=== PATIENT | male | born 1980 | race Caucasian/White ===

== ENCOUNTER 2022-09-08 04:10 | Emergency (ER) | payer OTHER, SELFPAY ==
[2022-09-08 04:20] VITALS: BP 121/75; PULSE 76; RESP 16; TEMP 37; O2SAT 99; BMI 35.9
[2022-09-08] MEDS: SODIUM CHLORIDE 0.9% 1,000 ML 1000 ML IV (04:44)
[2022-09-08 04:57] LABS: Add Manual Diff / Slide Review NO; Basophils Absolute Auto 0 /uL (0-100); Basophils Percent Auto 0.2 % (0-2); Eosinophils Absolute Auto 0 /uL (0-450); Eosinophils Percent Auto 0.1 % (2-4); Hematocrit 39.4 % (41-53); Hemoglobin 13.4 g/dL (13.5-17.5); Lymphocytes Absolute Auto 1200 /uL (1100-4500); Lymphocytes Percent Auto 12.5 % (25-40); Mean Corpuscular Hemoglobin 29.7 PG (26-34); Mean Corpuscular Volume 87.4 fL (80-100); Monocytes Absolute Auto 700 /uL (0-900); Monocytes Percent Auto 6.9 % (3-14); Neutrophils Absolute Auto 7700 /uL (1500-7000); Neutrophils Percent Auto 80.3 % (50-75); Platelet Count 213 X10^3/uL (150-400); Red Cell Distribution Width 13.7 % (11.6-14.8); White Blood Cell Count 9.6 X10^3/uL (4.5-11.0)
--- NOTE | 2022-09-08 05:03 | ED_ITS ---
HPI - Male Genitourinary General Chief complaint: Urogenital-Male Stated complaint: Kidney stone Time Seen by Provider: 09/08/22 04:24 Source: EMS Mode of arrival: EMS History of Present Illness HPI Narrative: Patient is a 42-year-old male history of multiple kidney stones with lithotripsy presents today with increased abdominal pain. He actually had a lithotripsy and stent placed in his right ureter yesterday. He since then has had increasing abdominal pain he has urinated small amounts frequently. He previously needed Mcintosh after a stent placement because his bladder so spasms. He is not had fever or chills. He is slightly nauseous. He is in quite a bit of pin pain he got 100 of fentanyl prior to arrival. Related Data Home Medications Medication Instructions Recorded Confirmed oxycodone 5 mg Q8HR PRN Pain (Scale Score 09/08/22 09/08/22 4-6) phenazopyridine 100 mg TID PRN Pain (Scale Score 09/08/22 09/08/22 1-3) tamsulosin 0.4 mg DAILY 09/08/22 09/08/22 Previous Rx's Medication Instructions Recorded cephalexin 500 mg capsule 500 mg PO BID 7 days #14 caps 09/08/22 ondansetron 4 mg disintegrating 4 mg PO Q8H PRN nausea and 09/08/22 tablet vomiting #10 tabs Allergies Allergy/AdvReac Type Severity Reaction Status Date / Time No Known Drug Allergies Allergy Verified 09/08/22 04:26 Review of Systems Review of Systems Narrative: GENERAL: Denies chills, fatigue, malaise, fever, sweats, travel HEENT: Denies sinus pain, ear pain, sore throat, difficulty swallowing, neck pain RESPIRATORY: Denies dyspnea, cough, wheezing, hemoptysis, sputum. CARDIOVASCULAR: Denies chest pain, palpitations, orthopnea, edema GASTROINTESTINAL: Denies nausea, vomiting, abdominal pain, diarrhea, constipation, melena. : See HPI MUSCULOSKELETAL: Denies weakness, joint pain, or bony pain SKIN: No rash, no erythema, no pruritus NEUROLOGIC: Denies weakness, dizziness, headache, numbness, change in speech, confusion PSYCHIATRIC: No concerning psychosocial issues. 12 point review of systems is negative except for those stated above and HPI Exam Initial Vital Signs Initial Vital Signs: Vital Signs Temperature 98.6 F 09/08/22 04:20 Pulse Rate 76 09/08/22 04:20 Respiratory Rate 16 09/08/22 04:20 Blood Pressure 121/75 09/08/22 04:20 Pulse Oximetry 99 09/08/22 04:20 Oxygen Delivery Method 09/08/22 04:20 GENERAL: Alert pleasant 42-year-old male appears very uncomfortable and in no acute distress. HEENT: Head atraumatic,EOMI, pupils reactive, face symmetric, moist mucous membranes CARDIOVASCULAR: Regular rate and rhythm without murmurs, rubs or gallops. RESPIRATORY: Breath sounds equal bilaterally, no wheezes rales or rhonchi. ABDOMEN: Soft, suprapubic pain no guarding rebound : No CVA tenderness EXTREMITIES: Normal range of motion, no clubbing or edema. Neurovascularly intact NEUROLOGICAL: Alert and oriented x4. SKIN: Warm, dry, no laceration, no petechiae, no rashes or lesions. Course Orders Ordered: ED Orders 09/08/22 04:45 CBC Auto Diff [Complete Blood Count AUTO DIFF] Stat CMP [Comprehensive Metabolic Panel] Stat Lactate (Lactic Acid) Stat Lipase Stat 09/08/22 05:03 XR abdomen 1V Stat Discontinued Medications Hydromorphone HCl (Hydromorphone 1 Mg Inj) 1 mg IV NOW ONE Stop: 09/08/22 05:04 Last Admin: 09/08/22 05:25 Dose: 1 mg Documented By: TRINA Sodium Chloride (Normal Saline 0.9%) 1,000 mls @ 1,000 mls/hr IV BOLUS ONE Stop: 09/08/22 05:24 Last Infusion: 09/08/22 05:25 Dose: 0 mls/hr Documented By: Admin: 09/08/22 04:44 Dose: 1,000 mls/hr Documented By: TRINA Lidocaine HCl (Lidocaine 2% (Glydo) 6 Ml Gel) 6 ml TOP NOW ONE Stop: 09/08/22 05:08 Last Admin: 09/08/22 05:25 Dose: 6 ml Documented By: TRINA Vital Signs Vital signs: Vital Signs - 8 hr 09/08/22 04:20 09/08/22 06:36 09/08/22 06:03 Temperature 98.6 F Pulse Rate 76 75 Respiratory Rate 16 16 Blood Pressure 121/75 123/79 Pulse Oximetry 99 97 Oxygen Delivery Method Room Air 09/08/22 06:30 Temperature Pulse Rate 80 Respiratory Rate Blood Pressure Pulse Oximetry 98 Oxygen Delivery Method MDM - Male Genitourinary Lab Data Result diagrams: 09/08/22 04:45 09/08/22 04:45 Labs: Lab Results 09/08/22 09/08/22 09/08/22 Range/Units 04:45 04:45 04:45 WBC 9.6 (4.5-11.0) X10^3/uL RBC 4.50 (4.5-5.9) X10^6/uL Hgb 13.4 L (13.5-17.5) g/dL Hct 39.4 L (41-53) % MCV 87.4 (80-100) fL MCH 29.7 (26-34) PG MCHC 34.0 (30-36) % RDW 13.7 (11.6-14.8) % Plt Count 213 (150-400) X10^3/uL Neut % (Auto) 80.3 H (50-75) % Lymph % (Auto) 12.5 L (25-40) % [place] % (Auto) 6.9 (3-14) % Eos % (Auto) 0.1 L (2-4) % Baso % (Auto) 0.2 (0-2) % Neut # (Auto) 7700 H (1482-1334) /uL Lymph # (Auto) 1200 (6024-2302) /uL [place] # (Auto) 700 (0-900) /uL Eos # (Auto) 0 (0-450) /uL Baso # (Auto) 0 (0-100) /uL Sodium 136 L (137-145) mmol/L Potassium 3.7 (3.4-5.1) mmol/L Chloride 100 (98-107) mmol/L Carbon Dioxide 28 (22-32) mmol/L BUN 11 (9-20) mg/dL Creatinine 0.95 (0.66-1.25) mg/dL Estimated GFR > 60 (>60) mL/min BUN/Creatinine Ratio 11.6 (6-22) Glucose 116 H (70-100) mg/dL Lactate 0.9 (0.7-2.1) mmol/L Calcium 8.5 (8.4-10.2) mg/dL Total Bilirubin 0.5 (0.2-1.3) mg/dL AST 20 (17-59) IU/L ALT 20 (<50) IU/L Alkaline Phosphatase 59 (38-126) U/L Total Protein 6.9 (6.3-8.2) g/dL Albumin 3.9 (3.5-5.0) g/dL Globulin 3.0 (1.7-4.1) g/dL Albumin/Globulin Ratio 1.3 (1.0-2.8) Lipase 68 (23-300) U/L Urine Dip Bedside Urine Glucose Negative Bedside Urine Bilirubin - Negative Bedside Urine Ketone - Negative Urine Specific [place] 1.005 Bedside Urine Occult Blood +++ Bedside Urine pH 6.0 Bedside Urine Protein +/- 15 Bedside Urine Urobilinogen - Negative Bedside Urine Nitrite + Positive Bedside Urine Leukocytes + 70 Esterase Imaging Data Abdominal x-ray: Radiologist's Impression: Preliminary report right ureteral stent in adequate position. No calculi are seen along the course of the stent. Nonobstructive bowel gas pattern without hemoperitoneum MDM Narrative Medical decision making narrative: Mcintosh catheter placed patient received immediate relief. He had over 800 out instantaneously NS at over a 1000 output since. Does have some leukocytosis. He has now Mcintosh catheter and a ureteral stent. I think reasonable to put him on antibiotics. Overall blood work is reassuring no evidence of acute kidney i njury. Or sepsis. Discharge Plan Departure Patient Disposition: Home Clinical Impression: Urinary tract infection, Acute urinary retention Instructions: DI for Urinary Retention in Men Activity Restrictions/Additional Instructions: *You have been diagnosed with urinary retention, UTI *What to do: At this time please call your urologist today to schedule follow- up appointment. Make sure he is aware of new Mcintosh catheter. *Continue to take medications as directed -->[place] [place] Keflex 500 mg twice a day for 7 days Zofran 4 mg every 8 hours if needed for nausea or vomiting *Follow up with your primary care provider in 2-3 days or call [phone] *Return to ER if you should have increasing pain Mcintosh catheter not working persistent vomiting or fever or any new, worsening or concerning symptoms Prescriptions: New cephalexin 500 mg capsule 500 mg PO BID 7 Days Qty: 14 0RF ondansetron 4 mg tablet,disintegrating 4 mg PO Q8H PRN (Reason: nausea and vomiting) Qty: 10 0RF No Action oxycodone 5 mg 5 mg Q8HR PRN (Reason: Pain (Scale Score 4-6)) phenazopyridine 100 mg 100 mg TID PRN (Reason: Pain (Scale Score 1-3)) tamsulosin 0.4 mg 0.4 mg DAILY Visit Report Forms: Patient Portal/API
--- NOTE | 2022-09-08 05:03 | DI.RAD.S_ITS ---
PROCEDURE: XR ABDOMEN 1V INDICATIONS: stent right side TECHNIQUE: One view of the abdomen acquired. COMPARISON: None. FINDINGS: Surgical changes and devices: There is a right-sided ureteral stent with the proximal loop in the area of the right renal pelvis and distal loop in the area of the urinary bladder. Bowel: Bowel gas pattern is normal. There is a large amount of stool in colon. Soft tissues: No suspicious abdominal calcifications. Visualized solid organ contours appear normal in size. Bones: No suspicious bony lesions. IMPRESSION: 1. A right ureteral stent. No definitive urinary stones are visualized on x-ray. If clinically indicated, CT may be helpful. No significant discrepancy with the night custodian radiology preliminary report. Dictated by: Swetha Martinez M.D. on 09/08/2022 at 8:15 Approved by: Swetha Martinez M.D. on 09/08/2022 at 8:17
--- NOTE | 2022-09-08 05:10 | PC.NURSE ---
Addendum entered by Luciana Tidwell R.N. 09/08/22 06:18: last time pt was able to empty his bladder was before the surgery yesterday morning, pt states he was able to urinate a small amount prior to ems arriving Original Note: see triage note for hx, pt's states this is his third lithotripsy and he has had post op complications with each one
[2022-09-08 05:16] LABS: Alanine Aminotransferase 20 IU/L (<50); Albumin 3.9 g/dL (3.5-5.0); Albumin Globulin Ratio 1.3 (1.0-2.8); Alkaline Phosphatase 59 U/L (38-126); Aspartate Aminotransferase 20 IU/L (17-59); BUN Creatinine Ratio 11.6 (6-22); Bilirubin Total 0.5 mg/dL (0.2-1.3); Blood Urea Nitrogen 11 mg/dL (9-20); Calcium 8.5 mg/dL (8.4-10.2); Carbon Dioxide 28 mmol/L (22-32); Chloride 100 mmol/L (98-107); Estimated Glomerular Filt Rate > 60 mL/min (>60); Glucose 116 mg/dL (70-100); HEMOLYSIS < 15 (0-50); Lipase 68 U/L (23-300); Potassium 3.7 mmol/L (3.4-5.1); Sodium 136 mmol/L (137-145); Total Protein 6.9 g/dL (6.3-8.2)
[2022-09-08 05:17] LABS: Lactate (Lactic Acid) 0.9 mmol/L (0.7-2.1)
[2022-09-08] MEDS: HYDROMORPHONE 1 MG INJ IV (05:25)
[2022-09-08] MEDS: LIDOCAINE 2% (GLYDO) 6 ML GEL TOP (05:25)
--- NOTE | 2022-09-08 05:27 | PC.NURSE ---
trevino inserted without difficulty, with pt's immediate relief 800 ml returned
[2022-09-08 06:03] VITALS: PULSE 75; RESP 16; O2SAT 97
[2022-09-08 06:30] VITALS: PULSE 80; O2SAT 98
[2022-09-08 06:36] VITALS: BP 123/79
== END 2022-09-08 06:53 | disposition home or self-care (01) ==
PROVIDERS: Emergency Provider Emergency Medicine
DX: N39.0 Urinary tract infection, site not specified (principal); R33.9 Retention of urine, unspecified
CPT/HCPCS: 36415; 51702; 74018; 80053; 81003; 83605; 83690; 85025; 96374; 99284; J1170

== ENCOUNTER 2022-09-14 13:13 | Emergency (ER) | payer OTHER, SELFPAY ==
[2022-09-14 13:19] VITALS: BP 120/78; PULSE 80; RESP 15; TEMP 36.6; O2SAT 97; BMI 30.1
[2022-09-14 13:33] LABS: Appearance Urine UA CLEAR; Bilirubin Urine UA NEGATIVE (NEGATIVE); Color Urine UA YELLOW; Glucose Urine UA NEGATIVE (Negative); Ketones Urine UA NEGATIVE (NEGATIVE); Leukocyte Esterase Urine UA NEGATIVE (NEGATIVE); Nitrite Urine UA NEGATIVE (Negative); Occult Blood Urine UA 1+ (Negative); Protein Urine UA NEGATIVE (Negative); Specific Gravity Urine UA <=1.005 (1.000-1.035); Urobilinogen Urine UA 0.2 E.U./dL (0.2); pH Urine UA 6.5 (4.5-8.0)
[2022-09-14 13:43] LABS: Bacteria Urine None Seen; Culture Indicated Urine Cult Not Indicated; RBC Urine None Seen (0-5/HPF); Squamous Epithelial Cell Urine None Seen (0-5/HPF); WBC Urine None Seen (0-5/HPF)
--- NOTE | 2022-09-14 14:46 | ED.MALEGU ---
HPI - Male Genitourinary <Rafael Galvez PA-C - Last Filed: 09/14/22 17:25> General Chief complaint: Urogenital-Male Stated complaint: lots of kidney pain Time Seen by Provider: 09/14/22 14:26 Source: patient Mode of arrival: Ambulatory History of Present Illness HPI Narrative: This is a 42-year-old male presents emergency department due to acute onset right flank pain onset yesterday. States that he is a history of lithotripsy and stent placement on the right side may a urologist who was part of the [facility] group. This was done a week ago. States that he was seen in the ED recently due to urinary retention where a Mcintosh was placed. The Mcintosh and stent were both removed by the urologist office 2 days ago. He has developed acute right flank pain since then. Reports being mildly nauseated. Denies any hematuria, dysuria, testicular pain, or any other concerning signs or symptoms. Related Data Home Medications Medication Instructions Recorded Confirmed oxycodone 5 mg Q8HR PRN Pain (Scale Score 09/08/22 09/08/22 4-6) phenazopyridine 100 mg TID PRN Pain (Scale Score 09/08/22 09/08/22 1-3) tamsulosin 0.4 mg DAILY 09/08/22 09/08/22 Previous Rx's Medication Instructions Recorded ondansetron 4 mg disintegrating 4 mg PO Q8H PRN nausea and 09/08/22 tablet vomiting #10 tabs Allergies Allergy/AdvReac Type Severity Reaction Status Date / Time No Known Drug Allergies Allergy Verified 09/14/22 13:19 Review of Systems <Rafael Galvez PA-C - Last Filed: 09/14/22 17:25> Review of Systems Narrative: GENERAL: Denies chills, fatigue, malaise, fever, sweats. HEENT: Denies sinus pain, ear pain, sore throat, difficulty swallowing, dizziness. RESPIRATORY: Denies dyspnea, cough, wheezing, hemoptysis, sputum. CARDIOVASCULAR: Denies chest pain, palpitations, orthopnea, edema, GASTROINTESTINAL: Denies nausea, vomiting, abdominal pain, diarrhea, constipation, melena. : Denies dysuria, frequency, incontinence, hematuria, urinary retention. MUSCULOSKELETAL: denies weakness, joint pain, or bony pain SKIN: Denies rash, skin lesions, or other NEUROLOGIC: Denies weakness, headache, numbness, change in speech, confusion, seizures, incoordination. PSYCHIATRIC: No concerning psychosocial issues. Back: Right flank pain 12 point review of systems is negative except for those stated above Patient History <Rafael Galvez PA-C - Last Filed: 09/14/22 17:25> Social History Smoking Status: Unknown if ever smoked Smoking Status: Unknown if ever smoked alcohol intake frequency: holidays/special occasions only Substance Use Type: does not use Exam <Rafael Galvez PA-C - Last Filed: 09/14/22 17:25> Narrative Exam Narrative: GENERAL: Well-developed patient, in mild distress. HEAD: Atraumatic. Normocephalic. EYES: Pupils equal round and reactive. Extraocular motions intact. No scleral icterus. No injection or drainage. ENT: Nose without bleeding, purulent drainage. Throat without erythema, tonsillar hypertrophy or exudate. Airway patent. NECK: Trachea midline. Non tender CARDIOVASCULAR: Regular rate and rhythm without murmurs, gallops, or rubs. RESPIRATORY: Clear to auscultation. Breath sounds equal bilaterally. No wheezes, rales, or rhonchi. GASTROINTESTINAL: Abdomen soft, non-tender, nondistended. EXTREMITIES: No edema or joint tenderness. BACK: Nontender without deformity or crepitance. Right CVA tenderness to palpation NEURO: AOx3. SKIN: No rash or erythema of visible areas Initial Vital Signs Initial Vital Signs: Vital Signs Temperature 97.8 F 09/14/22 13:19 Pulse Rate 80 09/14/22 13:19 Respiratory Rate 15 09/14/22 13:19 Blood Pressure 120/78 09/14/22 13:19 Pulse Oximetry 97 09/14/22 13:19 Oxygen Delivery Method 09/14/22 13:19 <Naila Olivas DO - Last Filed: 09/19/22 07:20> Initial Vital Signs Initial Vital Signs: Vital Signs Temperature 97.8 F 09/14/22 13:19 Pulse Rate 80 09/14/22 13:19 Respiratory Rate 15 09/14/22 13:19 Blood Pressure 120/78 09/14/22 13:19 Pulse Oximetry 97 09/14/22 13:19 Oxygen Delivery Method 09/14/22 13:19 Course <Rafael Galvez PA-C - Last Filed: 09/14/22 17:25> Orders Ordered: Discontinued Medications Morphine Sulfate (Morphine 2 Mg/Ml Inj) 2 mg IV NOW ONE Stop: 09/14/22 14:54 Last Admin: 09/14/22 15:06 Dose: 2 mg Documented By: RB Morphine Sulfate (Morphine 2 Mg/Ml Inj) 2 mg IV NOW ONE Stop: 09/14/22 16:57 Last Admin: 09/14/22 16:59 Dose: 2 mg Documented By: RB Ondansetron HCl (Ondansetron 4 Mg/2 Ml Inj) 4 mg IV NOW ONE Stop: 09/14/22 14:54 Last Admin: 09/14/22 15:06 Dose: 4 mg Documented By: RB Consultations Consultation #1: Spoke w/ patients urologist, Dr. Hernandez, of the [facility] group. Discussed the patient's case and she states no significant concern. Recommended routine follow-up and pain control. Vital Signs Vital signs: Vital Signs - 8 hr 09/14/22 13:19 09/14/22 15:17 09/14/22 16:13 Temperature 97.8 F 98.2 F Pulse Rate 80 80 Respiratory Rate 15 14 Blood Pressure 120/78 138/88 127/80 Pulse Oximetry 97 98 Oxygen Delivery Method Room Air Room Air 09/14/22 17:08 Temperature Pulse Rate Respiratory Rate Blood Pressure 134/78 Pulse Oximetry Oxygen Delivery Method <Naila Olivas DO - Last Filed: 09/19/22 07:20> Orders Ordered: Discontinued Medications Morphine Sulfate (Morphine 2 Mg/Ml Inj) 2 mg IV NOW ONE Stop: 09/14/22 14:54 Last Admin: 09/14/22 15:06 Dose: 2 mg Documented By: RB Morphine Sulfate (Morphine 2 Mg/Ml Inj) 2 mg IV NOW ONE Stop: 09/14/22 16:57 Last Admin: 09/14/22 16:59 Dose: 2 mg Documented By: RB Ondansetron HCl (Ondansetron 4 Mg/2 Ml Inj) 4 mg IV NOW ONE Stop: 09/14/22 14:54 Last Admin: 09/14/22 15:06 Dose: 4 mg Documented By: RB Vital Signs Vital signs: Vital Signs - 8 hr 09/14/22 13:19 09/14/22 15:17 09/14/22 16:13 Temperature 97.8 F 98.2 F Pulse Rate 80 80 Respiratory Rate 15 14 Blood Pressure 120/78 138/88 127/80 Pulse Oximetry 97 98 Oxygen Delivery Method Room Air Room Air 09/14/22 17:08 Temperature Pulse Rate Respiratory Rate Blood Pressure 134/78 Pulse Oximetry Oxygen Delivery Method MDM - Male Genitourinary <Rafael Galvez PA-C - Last Filed: 09/14/22 17:25> Lab Data Result diagrams: 09/14/22 14:44 09/14/22 14:44 Labs: Lab Results 09/14/22 09/14/22 09/14/22 Range/Units 13:24 14:44 14:44 WBC 5.7 (4.5-11.0) X10^3/uL RBC 4.76 (4.5-5.9) X10^6/uL Hgb 14.0 (13.5-17.5) g/dL Hct 41.8 (41-53) % MCV 87.9 (80-100) fL MCH 29.5 (26-34) PG MCHC 33.6 (30-36) % RDW 13.2 (11.6-14.8) % Plt Count 218 (150-400) X10^3/uL Neut % (Auto) 47.0 L (50-75) % Lymph % (Auto) 44.5 H (25-40) % [place] % (Auto) 6.7 (3-14) % Eos % (Auto) 1.0 L (2-4) % Baso % (Auto) 0.8 (0-2) % Neut # (Auto) 2700 (1578-0728) /uL Lymph # (Auto) 2500 (8784-3440) /uL [place] # (Auto) 400 (0-900) /uL Eos # (Auto) 100 (0-450) /uL Baso # (Auto) 0 (0-100) /uL Sodium 140 (137-145) mmol/L Potassium 3.9 (3.4-5.1) mmol/L Chloride 101 (98-107) mmol/L Carbon Dioxide 29 (22-32) mmol/L BUN 12 (9-20) mg/dL Creatinine 0.80 (0.66-1.25) mg/dL Estimated GFR > 60 (>60) mL/min BUN/Creatinine Ratio 15.0 (6-22) Glucose 94 (70-100) mg/dL Calcium 9.0 (8.4-10.2) mg/dL Total Bilirubin 0.4 (0.2-1.3) mg/dL AST 65 H (17-59) IU/L ALT 81 H (<50) IU/L Alkaline Phosphatase 69 (38-126) U/L Total Protein 8.0 (6.3-8.2) g/dL Albumin 4.4 (3.5-5.0) g/dL Globulin 3.6 (1.7-4.1) g/dL Albumin/Globulin Ratio 1.2 (1.0-2.8) Urine Color Yellow Urine Appearance Clear Urine pH 6.5 (4.5-8.0) Ur Specific [place] <=1.005 (1.000-1.035) Urine Protein Negative (Negative) Urine Glucose (UA) Negative (Negative) g/dL Urine Ketones Negative (NEGATIVE) Urine Occult Blood 1+ H (Negative) Urine Nitrate Negative (Negative) Urine Bilirubin Negative (NEGATIVE) Urine Urobilinogen 0.2 (0.2) E.U./dL Ur Leukocyte Esterase Negative (NEGATIVE) Urine RBC None seen (0-5/HPF) Urine WBC None seen (0-5/HPF) Ur Squamous Epith Cells None seen (0-5/HPF) Urine Bacteria None seen (None) Ur Culture Indicated? Cult not indicated Imaging Data CT scan - abdomen/pelvis: Radiologist's Impression: [place] [address] CT Scan Report Signed Patient: Kehinde Tse MR#: [id number] : 1980 Acct:[id number] Age/Sex: 42 / M Date of Service: 09/14/22 Loc: ED Accession Number: [id number] ?? Procedure: CT kidney ureter bladder (KUB) Ordering Provider: Rafael Galvez P.A-C PROCEDURE:? CT KIDNEY URETER BLADDER (KUB) ? INDICATIONS:? R flank pain ? TECHNIQUE:? Axial sections were acquired from the lung bases to the pubic symphysis.? Coronal and sagittal reformats were performed.? For radiation dose reduction, the following was used: ?automated exposure control, adjustment of mA and/or kV according to patient size.? ? COMPARISON:? None. ? FINDINGS:? Image quality:? Excellent.? ? Lung bases:? Unremarkable.? ? Heart:? No significant findings. ? URINARY: Right Kidney: ? Small faint lower pole nonobstructing stone.? No hydronephrosis. Right Ureter:? No hydroureter.? ? Left Kidney: ? 2 x 4 mm middle pole stone.? Nonobstructive.? No hydronephrosis. Left Ureter:? No hydroureter.? ? Bladder:? Normal wall thickness. No stones. ? ? ? ABDOMEN: Liver:? Unremarkable.? ? Gallbladder:? Unremarkable.? ? Biliary ducts:? Unremarkable.? ? Pancreas:? Unremarkable.? ? Spleen:? Unremarkable.? ? Adrenal Glands:? Unremarkable.? ? ? Stomach and Bowel:? Stomach, small bowel loops, and colon are unremarkable.? Moderately large fecal load.? Normal appendix. Peritoneum:? No abnormal intraperitoneal fluid.? No free air.? ? Ventral Wall: ? No hernia.? Abdominal Nodes:? No enlarged retroperitoneal or mesenteric lymph nodes.? Vessels:? Aorta and inferior vena cava are normal in size.? Bilateral SFA atherosclerotic calcifications. ? PELVIS: Pelvic Organs:? Unremarkable.? ? Pelvic Nodes: Unremarkable. Miscellaneous: No inguinal hernias are seen. ? ? ? Bones:? Unremarkable. ? IMPRESSION:? ? 1. Bilateral nephrolithiasis. ? 2. No hydronephrosis or hydroureter. ? 3. No evidence acute abdominal process.? Dictated by: Kapil Aguilar M.D. on 09/14/2022 at 16:57 ? ? Approved by: Kapil Aguilar M.D. on 09/14/2022 at 17:01 ? MDM Narrative Medical decision making narrative: This is a 42-year-old male presents to the emergency department due to acute onset right flank pain after stent and catheter removal 2 days ago. Patient had a lithotripsy and stent placement approximately week and a half ago. Patient denies any symptoms of UTI and recently completed a course of antibiotics. Low suspicion for any kind of further infection. Lab work was unremarkable. No anemia or evidence of acute hemorrhage. Kidney function lab values, BUN, creatinine, and GFR within normal limits. No leukocytosis or evidence of infection. Case was discussed with the patient's urologist who stated that there was no significant concern. CT was ordered which showed no significant abnormalities other than bilateral nephrolithiasis. Patient was discharged with instructions for pain management and symptomatic treatment. <Naila Olivas, DO - Last Filed: 09/19/22 07:20> Lab Data Labs: Lab Results 09/14/22 09/14/22 09/14/22 Range/Units 13:24 14:44 14:44 WBC 5.7 (4.5-11.0) X10^3/uL RBC 4.76 (4.5-5.9) X10^6/uL Hgb 14.0 (13.5-17.5) g/dL Hct 41.8 (41-53) % MCV 87.9 (80-100) fL MCH 29.5 (26-34) PG MCHC 33.6 (30-36) % RDW 13.2 (11.6-14.8) % Plt Count 218 (150-400) X10^3/uL Neut % (Auto) 47.0 L (50-75) % Lymph % (Auto) 44.5 H (25-40) % [place] % (Auto) 6.7 (3-14) % Eos % (Auto) 1.0 L (2-4) % Baso % (Auto) 0.8 (0-2) % Neut # (Auto) 2700 (8422-8550) /uL Lymph # (Auto) 2500 (3246-7586) /uL [place] # (Auto) 400 (0-900) /uL Eos # (Auto) 100 (0-450) /uL Baso # (Auto) 0 (0-100) /uL Sodium 140 (137-145) mmol/L Potassium 3.9 (3.4-5.1) mmol/L Chloride 101 (98-107) mmol/L Carbon Dioxide 29 (22-32) mmol/L BUN 12 (9-20) mg/dL Creatinine 0.80 (0.66-1.25) mg/dL Estimated GFR > 60 (>60) mL/min BUN/Creatinine Ratio 15.0 (6-22) Glucose 94 (70-100) mg/dL Calcium 9.0 (8.4-10.2) mg/dL Total Bilirubin 0.4 (0.2-1.3) mg/dL AST 65 H (17-59) IU/L ALT 81 H (<50) IU/L Alkaline Phosphatase 69 (38-126) U/L Total Protein 8.0 (6.3-8.2) g/dL Albumin 4.4 (3.5-5.0) g/dL Globulin 3.6 (1.7-4.1) g/dL Albumin/Globulin Ratio 1.2 (1.0-2.8) Urine Color Yellow Urine Appearance Clear Urine pH 6.5 (4.5-8.0) Ur Specific [place] <=1.005 (1.000-1.035) Urine Protein Negative (Negative) Urine Glucose (UA) Negative (Negative) g/dL Urine Ketones Negative (NEGATIVE) Urine Occult Blood 1+ H (Negative) Urine Nitrate Negative (Negative) Urine Bilirubin Negative (NEGATIVE) Urine Urobilinogen 0.2 (0.2) E.U./dL Ur Leukocyte Esterase Negative (NEGATIVE) Urine RBC None seen (0-5/HPF) Urine WBC None seen (0-5/HPF) Ur Squamous Epith Cells None seen (0-5/HPF) Urine Bacteria None seen (None) Ur Culture Indicated? Cult not indicated Discharge Plan Departure Patient Disposition: Home Clinical Impression: Acute flank pain Activity Restrictions/Additional Instructions: Thank you for coming to the [facility] Emergency Department today. We spoke with urologist he states that there was no significant concern based on your symptoms and lab work. Your lab work was unremarkable and no evidence of any infection or acute blood loss. Your urine did not show any evidence of an infection. Your CT scan showed no significant abnormalities that would explain these symptoms. I suspect the pain is residual from the recent stent being pulled. Please continue to use ibuprofen, Tylenol, and oxycodone that you were previously prescribed. I hope you feel better soon. Prescriptions: No Action oxycodone 5 mg 5 mg Q8HR PRN (Reason: Pain (Scale Score 4-6)) phenazopyridine 100 mg 100 mg TID PRN (Reason: Pain (Scale Score 1-3)) tamsulosin 0.4 mg 0.4 mg DAILY ondansetron 4 mg tablet,disintegrating 4 mg PO Q8H PRN (Reason: nausea and vomiting) Qty: 10 0RF Visit Report Forms: Patient Portal/API <Naila Botnick, DO - Last Filed: 09/19/22 07:20> Cosign ED Attending Cosignature Attestation: I was immediately available in the department for consultation. Documentation has been reviewed. I agree with assessment and plan.
[2022-09-14] MEDS: MORPHINE 2 MG/ML INJ IV ×2 (15:06→16:59)
[2022-09-14] MEDS: ONDANSETRON 4 MG/2 ML INJ IV (15:06)
[2022-09-14 15:17] VITALS: BP 138/88; PULSE 80; RESP 14; TEMP 36.8; O2SAT 98
[2022-09-14 16:13] VITALS: BP 127/80
[2022-09-14 16:37] LABS: Alanine Aminotransferase 81 IU/L (<50); Albumin 4.4 g/dL (3.5-5.0); Albumin Globulin Ratio 1.2 (1.0-2.8); Alkaline Phosphatase 69 U/L (38-126); Aspartate Aminotransferase 65 IU/L (17-59); Bilirubin Total 0.4 mg/dL (0.2-1.3); Blood Urea Nitrogen 12 mg/dL (9-20); Carbon Dioxide 29 mmol/L (22-32); Chloride 101 mmol/L (98-107); Estimated Glomerular Filt Rate > 60 mL/min (>60); Globulin 3.6 g/dL (1.7-4.1); Glucose 94 mg/dL (70-100); HEMOLYSIS 16 (0-50); Potassium 3.9 mmol/L (3.4-5.1); Sodium 140 mmol/L (137-145)
--- NOTE | 2022-09-14 16:40 | DI.CT.S_ITS ---
PROCEDURE: CT KIDNEY URETER BLADDER (KUB) INDICATIONS: R flank pain TECHNIQUE: Axial sections were acquired from the lung bases to the pubic symphysis. Coronal and sagittal reformats were performed. For radiation dose reduction, the following was used: automated exposure control, adjustment of mA and/or kV according to patient size. COMPARISON: None. FINDINGS: Image quality: Excellent. Lung bases: Unremarkable. Heart: No significant findings. URINARY: Right Kidney: Small faint lower pole nonobstructing stone. No hydronephrosis. Right Ureter: No hydroureter. Left Kidney: 2 x 4 mm middle pole stone. Nonobstructive. No hydronephrosis. Left Ureter: No hydroureter. Bladder: Normal wall thickness. No stones. ABDOMEN: Liver: Unremarkable. Gallbladder: Unremarkable. Biliary ducts: Unremarkable. Pancreas: Unremarkable. Spleen: Unremarkable. Adrenal Glands: Unremarkable. Stomach and Bowel: Stomach, small bowel loops, and colon are unremarkable. Moderately large fecal load. Normal appendix. Peritoneum: No abnormal intraperitoneal fluid. No free air. Ventral Wall: No hernia. Abdominal Nodes: No enlarged retroperitoneal or mesenteric lymph nodes. Vessels: Aorta and inferior vena cava are normal in size. Bilateral SFA atherosclerotic calcifications. PELVIS: Pelvic Organs: Unremarkable. Pelvic Nodes: Unremarkable. Miscellaneous: No inguinal hernias are seen. Bones: Unremarkable. IMPRESSION: 1. Bilateral nephrolithiasis. 2. No hydronephrosis or hydroureter. 3. No evidence acute abdominal process. Dictated by: Kapil Aguilar M.D. on 09/14/2022 at 16:57 Approved by: Kapil Aguilar M.D. on 09/14/2022 at 17:01
[2022-09-14 16:55] LABS: Add Manual Diff / Slide Review NO; Basophils Absolute Auto 0 /uL (0-100); Basophils Percent Auto 0.8 % (0-2); Eosinophils Absolute Auto 100 /uL (0-450); Hematocrit 41.8 % (41-53); Lymphocytes Absolute Auto 2500 /uL (1100-4500); Lymphocytes Percent Auto 44.5 % (25-40); Mean Corpuscular HGB Conc 33.6 % (30-36); Mean Corpuscular Hemoglobin 29.5 PG (26-34); Mean Corpuscular Volume 87.9 fL (80-100); Monocytes Absolute Auto 400 /uL (0-900); Monocytes Percent Auto 6.7 % (3-14); Neutrophils Absolute Auto 2700 /uL (1500-7000); Platelet Count 218 X10^3/uL (150-400); Red Blood Cell Count 4.76 X10^6/uL (4.5-5.9); Red Cell Distribution Width 13.2 % (11.6-14.8); White Blood Cell Count 5.7 X10^3/uL (4.5-11.0)
[2022-09-14 17:08] VITALS: BP 134/78
[2022-09-14 17:51] VITALS: BP 123/71; PULSE 83; RESP 16; TEMP 36.8; O2SAT 96
== END 2022-09-14 17:55 | disposition home or self-care (01) ==
PROVIDERS: Emergency Medicine; Emergency Provider Physician Assistant Medical
DX: R10.9 Unspecified abdominal pain (principal); Z87.442 Personal history of urinary calculi
CPT/HCPCS: 74176; 80053; 81001; 85025; 96374; 96375; 96376; 99284; J2270; J2405